=== PATIENT | female | born 1990 | race Hispanic/Latino ===

== ENCOUNTER 2017-08-23 18:35 | Emergency (ER) | payer OTHER ==
[2017-08-23 18:42] VITALS: BP 158/99; PULSE 93; RESP 16; TEMP 97.9; O2SAT 100
[2017-08-23 20:59] LABS: RBC URINE < 1 /hpf (0-3); URINE BILIRUBIN NEGATIVE (NEGATIVE); URINE BLOOD NEGATIVE (NEGATIVE); URINE COLOR YELLOW (YELLOW); URINE GLUCOSE (UA) NEG (Normal); URINE KETONE TRACE mg/dL (NEGATIVE); URINE LEUKOCYTE ESTERASE NEG Leu/uL (Negative); URINE PROTEIN NEGATIVE (NEGATIVE); URINE UROBILINOGEN 0.2-1.0 mg/dL (0.2-1.0); WBC URINE 1 /hpf (0-5)
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
== END 2017-08-23 22:15 | disposition home or self-care (01) ==
LOC: H.ER 18:35
DX: R41.3 Other amnesia (principal); K64.9 Unspecified hemorrhoids; T76.21XA Adult sexual abuse, suspected, initial encounter